=== PATIENT | female | born 1955 | race American Indian/Alaskan Native ===

== ENCOUNTER 2019-07-22 14:51 | Observation (INO) | payer MEDICARE ==
--- NOTE | 2019-07-22 15:52 | Emergency Department Report ---
HPI - General Chief Complaint: Altered Mental Status Time Seen by Provider: 07/22/19 15:32 - HPI HPI: Room 7 The patient is a 63-year-old female presenting with chief complaint of altered mental status. 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 Upon arrival to the Hospital patient was sent to the ED for reevaluation. When asked how she was feeling the patient replies she has some discomfort in her throat. The patient mumbles something else but also julia rologist that she was given some medication earlier today that made her sleepy. Location: [See above] Duration: [See above] Quality: [See above] Severity: [See above] Timing: [See above] Context: [See above] Modifying factors: [See above] Associated signs and symptoms: [see above] ED Past Medical Hx - Past Medical History Hx Hypertension: Yes Hx Psychiatric Treatment: Yes (schizoaffective disorder) - Family History Family history: no significant - Social History Substance Use Type: Cocaine (past history of cocaine use) - Medications Home Medications: Home Medications Medication Instructions Recorded Confirmed Last Taken Type Citalopram [celeXA] 20 mg PO BID 07/23/19 07/23/19 Unknown History Divalproex ER [DepaKOTE ER] 500 mg PO BID 07/23/19 07/23/19 Unknown History Folic Acid [Folvite] 1 mg PO QDAY 07/23/19 07/23/19 Unknown History Gabapentin [Neurontin] 300 mg PO Q8HR 07/23/19 07/23/19 Unknown History Hydroxyzine HCl [hydrOXYzine] 100 mg PO BID PRN 07/23/19 07/23/19 Unknown History Lisinopril [Zestril] 20 mg PO QDAY 07/23/19 07/23/19 Unknown History Multivit with Minerals No.55 1 each PO DAILY 07/23/19 07/23/19 Unknown History [Centrum Flavor Burst Adult] Thiamine [Vitamin B-1] 100 mg PO QDAY 07/23/19 07/23/19 Unknown History amLODIPine [Norvasc] 10 mg PO DAILY 07/23/19 07/23/19 Unknown History diazePAM TAB [Valium] 5 mg PO TID PRN 07/23/19 07/23/19 Unknown History hydroCHLOROthiazide [HCTZ] 25 mg PO QDAY 07/23/19 07/23/19 Unknown History risperiDONE [RisperDAL] 0.5 mg PO BID 07/23/19 07/23/19 Unknown History ED Review of Systems ROS: Stated complaint: ALTERED MENTAL STATUS Other details as noted in HPI Constitutional: no symptoms reported Eyes: denies: eye pain ENT: throat pain Respiratory: no symptoms reported Cardiovascular: denies: chest pain Endocrine: no symptoms reported Psychiatric: other (schizoaffective disorder) Physical Exam - Physical Exam Vital Signs: Vital Signs 07/22/19 15:20 Temperature 97.9 F Pulse Rate 91 H Respiratory 18 Rate Blood Pressure 121/64 [Right] O2 Sat by Pulse 99 Oximetry Physical Exam: GENERAL: The patient is well-developed well-nourished female lying on stretcher asleep not appearing to be in acute distress. Patient easily awakened HEENT: Normocephalic. Atraumatic. Extraocular motions are intact. Patient has moist mucous membranes. NECK: Supple. Trachea midline. No stridor CHEST/LUNGS: Clear to auscultation. There is no respiratory distress noted. HEART/CARDIOVASCULAR: Regular. There is no tachycardia. There is no gallop rub or murmur. ABDOMEN: Abdomen is soft, nontender. Patient has normal bowel sounds. There is no abdominal distention. SKIN: There is no rash. There is no edema. There is no diaphoresis. NEURO: The patient is awake but slightly slow to respond. The patient is cooperative. The patient has no focal neurologic deficits. The patient has normal speech. Cranial nerves II through XII grossly intact MUSCULOSKELETAL: There is no evidence of acute injury. ED Course Vital Signs 07/22/19 15:20 Temperature 97.9 F Pulse Rate 91 H Respiratory 18 Rate Blood Pressure 121/64 [Right] O2 Sat by Pulse 99 Oximetry ED Medical Decision Making - Lab Data Result diagrams: 07/23/19 19:50 07/23/19 19:50 - EKG Data -: EKG Interpreted by Ia EKG shows normal: sinus rhythm Rate: normal - EKG Data When compared to previous EKG there are: previous EKG unavailable Interpretation: other (no ischemic changes seen) - Differential Diagnosis sedation, Depakote toxicity, electrolyte imbalance, Critical care attestation.: If time is entered above; I have spent that time in minutes in the direct care of this critically ill patient, excluding procedure time. ED Disposition Clinical Impression: Hyperkalemia Acute renal failure Qualifiers: Acute renal failure type: unspecified Qualified Code(s): N17.9 - Acute kidney failure, unspecified Disposition: OP ADMIT IP TO THIS HOSP Is pt being admited?: Yes Does the pt Need Aspirin: No Condition: Fair
[2019-07-22 17:17] LABS: Hematocrit 30.1 % (30.3-42.9); Hemoglobin 9.8 gm/dl (10.1-14.3); Mean Corpuscular HGB Conc 33 % (30-34); Mean Corpuscular Volume 91 fl (79-97); Platelet Count 354 K/mm3 (140-440); Red Blood Count 3.31 M/mm3 (3.65-5.03); Red Cell Distribution Width 16.6 % (13.2-15.2)
[2019-07-22] MEDS ORDERED: SODIUM CHLORIDE 0.9% 1000 ML 1,000 ML IV ONE ×2 (17:17→18:22)
[2019-07-22 17:26] LABS: Alanine Aminotransferase 8 units/L (7-56); BUN/Creatinine Ratio 13; Blood Urea Nitrogen 12 mg/dL (7-17); Creatine Kinase MB < 1.0 ng/mL (0.0-4.0); Hemolysis Index 20
[2019-07-22 17:38] LABS: Free T4 (Free Thyroxine) 1.28 ng/dL (0.76-1.46)
[2019-07-22 19:02] LABS: Basophils % (Manual) 0 % (0.0-1.8); Eosinophils % (Manual) 0 % (0.0-4.3); Large Platelets 1+; Platelet Estimate Consistent w Auto; RBC Morphology Normal; Total Cells Counted 100
[2019-07-22 19:20] LABS: Bilirubin,Urine NEG (Negative); Blood,Urine NEG (Negative); Color,Urine Yellow (Yellow); Protein,Urine <15 mg/dL mg/dL (Negative); RBC,Urine < 1.0 /HPF (0.0-6.0); Urobilinogen,Urine < 2.0 mg/dL (<2.0)
[2019-07-22 19:26] LABS: WBC,Urine < 1.0 /HPF (0.0-6.0)
[2019-07-22 20:11] LABS: Amphetamine Screen,Urine PRESUMPTIVE NEGATIVE; Benzodiazepines Screen,Urine PRESUMPTIVE NEGATIVE; Cannabinoid Screen,Urine PRESUMPTIVE NEGATIVE; Cocaine Screen,Urine PRESUMPTIVE NEGATIVE; Methadone Screen,Urine PRESUMPTIVE NEGATIVE; Opiate Screen,Urine PRESUMPTIVE NEGATIVE
[2019-07-23 10:16] LABS: Calcium 9.6 mg/dL (8.4-10.2)
--- NOTE | 2019-07-23 10:17 | Consultation ---
History of Present Illness - Reason for Consult Consult date: 07/23/19 Reason for consult: Mental Health Evaluation Requesting physician: THEO CASTAÑEDA - Chief Complaint Chief complaint: "The patient mumbles" - History of Present Psychiatric Illness 63 y.o. AA female who presented to the ER for AMS. Today the patient was lethargic during the assessment. She could not answer any questions when asked. Several attempts was made to engage the patient, but was unsuccessful. Per the record, the patient is a [place]. No gestures of SI/HI's. Medications and Allergies Allergies Allergy/AdvReac Type Severity Reaction Status Date / Time No Known Allergies Allergy Verified 07/22/19 17:17 Home Medications Medication Instructions Recorded Confirmed Last Taken Type Citalopram [celeXA] 20 mg PO BID 07/23/19 07/23/19 Unknown History Divalproex ER [DepaKOTE ER] 500 mg PO BID 07/23/19 07/23/19 Unknown History Folic Acid [Folvite] 1 mg PO QDAY 07/23/19 07/23/19 Unknown History Gabapentin [Neurontin] 300 mg PO Q8HR 07/23/19 07/23/19 Unknown History Hydroxyzine HCl [hydrOXYzine] 100 mg PO BID PRN 07/23/19 07/23/19 Unknown History Lisinopril [Zestril] 20 mg PO QDAY 07/23/19 07/23/19 Unknown History Multivit with Minerals No.55 1 each PO DAILY 07/23/19 07/23/19 Unknown History [Centrum Flavor Burst Adult] Thiamine [Vitamin B-1] 100 mg PO QDAY 07/23/19 07/23/19 Unknown History amLODIPine [Norvasc] 10 mg PO DAILY 07/23/19 07/23/19 Unknown History diazePAM TAB [Valium] 5 mg PO TID PRN 07/23/19 07/23/19 Unknown History hydroCHLOROthiazide [HCTZ] 25 mg PO QDAY 07/23/19 07/23/19 Unknown History risperiDONE [RisperDAL] 0.5 mg PO BID 07/23/19 07/23/19 Unknown History Past psychiatric history - Past Medical History Past Medical History: other (Unable to obtain ) Past Surgical History: Other (Unable to obtain ) - past Psychiatric treatment and history psychiatric treatment history: Unable to obtain a psy hx and fam psy hx. - Social History Social history: other (Unable to obtain) Mental Status Exam - Vital signs Last Vital Signs Temp 99.1 F 07/23/19 08:04 Pulse 92 H 07/23/19 09:00 Resp 10 L 07/23/19 09:00 BP 102/55 07/23/19 09:00 Pulse Ox 100 07/23/19 09:00 - Exam Narrative exam: Unable to complete the MSE because of the patient's condition. Results Result Diagrams: 07/23/19 19:50 07/23/19 19:50 Abnormal lab results 07/22/19 07/22/19 07/22/19 Range/Units 15:03 16:44 16:44 RBC 3.31 L (3.65-5.03) M/mm3 Hgb 9.8 L (10.1-14.3) gm/dl Hct 30.1 L (30.3-42.9) % RDW 16.6 H (13.2-15.2) % Monocytes % (Manual) 13.0 H (0.0-7.3) % Monocytes # (Manual) 1.2 H (0.0-0.8) K/mm3 Sodium 133 L (137-145) mmol/L Potassium 5.3 H (3.6-5.0) mmol/L Chloride 97.0 L (98-107) mmol/L Carbon Dioxide 21 L (22-30) mmol/L Glucose 147 H (65-100) mg/dL POC Glucose 160 H (70-105) Albumin 3.0 L (3.9-5) g/dL 07/22/19 07/22/19 Range/Units 16:45 21:06 RBC (3.65-5.03) M/mm3 Hgb (10.1-14.3) gm/dl Hct (30.3-42.9) % RDW (13.2-15.2) % Monocytes % (Manual) (0.0-7.3) % Monocytes # (Manual) (0.0-0.8) K/mm3 Sodium (137-145) mmol/L Potassium 5.3 H (3.6-5.0) mmol/L Chloride (98-107) mmol/L Carbon Dioxide (22-30) mmol/L Glucose (65-100) mg/dL POC Glucose 165 H (70-105) Albumin (3.9-5) g/dL All other labs normal. Assessment and Plan Assessment and plan: Impression: Today the patient was lethargic during the assessment. Recommendation/Plan: The patient isn't on a 1013 at this time. Attempt to reassess the patient in [address] Bart Winslow.
--- NOTE | 2019-07-23 10:26 | Cat Scan Report ---
CT HEAD WITHOUT CONTRAST INDICATION : AMS. TECHNIQUE: Axial imaging performed from the skull apex through the skull base without the use of con trast. All CT scans at this location are performed using CT dose reduction for ALARA by means of aut omated exposure control. COMPARISON: None FINDINGS: Motion degrades the quality of the exam. Parenchyma: No acute intracranial hemorrhage or parenchymal abnormality. Ventricles: Ventricles are normal in size and appear symmetric. Frontal lobe and temporal lobe sulci are slightly large. Soft tissues: Soft tissues including the orbits appear normal. Bones: No acute osseous abnormality. Sinuses: Sinuses and mastoid air cells are clear except for calcific densities and right frontal and right ethmoid sinuses. IMPRESSION: No acute abnormality. Mild frontotemporal cortical atrophy. Chronic sinusitis versus yoli gn osteomas involving right frontal and right ethmoid sinuses. Signer Name: Eric Hoffmann MD Signed: 07/23/2019 10:22 AM Workstation Name: [id number]
[2019-07-23] MEDS ORDERED: SODIUM BICARB 8.4% 50 MEQ/50 ML SYRINGE IV ONE (12:44)
[2019-07-23] MEDS ORDERED: SODIUM CHLORIDE 0.9% 1000 ML 1,000 ML IV ONE (12:44)
[2019-07-23] MEDS ORDERED: DEXTROSE 50% IN WATER (25GM) 50 ML SYRINGE IV ONE ×2 (12:45→18:56)
[2019-07-23] MEDS ORDERED: INSULIN REGULAR, HUMAN 100 UNITS/1 ML IV ONE ×3 (12:45→23:15)
[2019-07-23] MEDS ORDERED: MEROPENEM/NS 1 GRAM/100 ML 1 GRAM/100 ML BAG IV ONE (12:47)
--- NOTE | 2019-07-23 12:57 | Emergency Department Report ---
Blank Doc - Documentation Documentation: 63-year-old female who was apparently evaluated last night. I note that she do es not have a disposition. She does not have a psychiatric assessment. Therefore I essentially reviewed her case and ordered additional laboratory study and examined the patient. The history that I have was that the patient came from a discussed the to [place] I was sent here for medical clearance. I do not have much in the way of specifics. She is said to have dementia. History is unobtainable from the patient. Review of systems unobtainable Past medical history dementia Social history as above indicated and largely unknown On examination the patient feels topically warm. Her rectal temp was obtained and was 99.6. Her general appearance is ill and somewhat volume depleted. HEENT his sclera and conjunctiva are clear the oral mucosa is dry. Neck not entirely supple with no meningismus mass or thyromegaly Cardiovascular regular rhythm and rate, systolic murmur noted Respiratory breath sounds clear and intact in the supine position GI the abdomen is nondistended soft and not apparently tender Musculoskeletal the patient has chronic knee deformity and does wince with range of motion. Laboratory data I found the patient to be hyperkalemic. There wasn't in accurately recorded t otal CK. The lab verbally told me it was 5031 but now I see 31 is documented. In any case a repeat BMP shows evidence of acute kidney injury and worsening hyperkalemia repeat CK is pending. Blood cultures and lactic acid have been ordered. Antibiotics and additional fluids have been ordered. Impression Acute kidney injury Hyperkalemia ? rhabdo Consider sepsis Altered mental status Plan the patient meets criteria for further stabilization. Hyperkalemia cocktail was ordered. Additional fluid and antibiotics as above. The patient is referred to hospitalist service for further care and stabilization. She is not medically clear for transfer to [place] obviously.
[2019-07-23] MEDS ORDERED: ASPIRIN 81 MG TAB CHEW PO ONE (12:59)
[2019-07-23] MEDS ORDERED: VANCOMYCIN PHARMACY TO DOSE IV SCH (13:00)
--- NOTE | 2019-07-23 13:23 | XRay Report ---
CHEST 1 VIEW INDICATION: hypertension COMPARISON: None FINDINGS: Support devices: None Heart: Normal Lungs/Pleura: Right hemidiaphragm is moderately elevated. Mild, chronic appearing interstitial diseas e. No pleural effusion or acute pulmonary disease. IMPRESSION: 1. No acute abnormalities. Signer Name: Ray Castaneda MD Signed: 07/23/2019 1:19 PM Workstation Name: [id number]
[2019-07-23] MEDS ORDERED: CALCIUM GLUCONATE 1,000 MG in SODIUM CHLORIDE 0.9% 100 ML IV ONE (13:45)
--- NOTE | 2019-07-23 13:49 | History and Physical Report ---
History of Present Illness Chief complaint: She is confused History of present illness: 63 YO Female with Schizoaffective Disorder, Cocaine Dependence presents to ED for evaluation. Pt is confused and lethargic and unable to provide history. Pt history taken from EMS and medical record. Pt was scheduled to be admitted to [facility] but became confused. Pt transported to [facility]. Pt seen and evaluated in ED and found to have Acute Kidney Injury, Encephalopathy, Acidosis. Pt symptoms worsened with IVF resuscitation. Pt admitted to [facility] unit. No further history obtainable. Pt is lethargic, but has positive gag reflex, and is able to protect her airway without difficulty. No prior admission for review. No medication listed for reconciliation at time of admission. Past History Past Medical History: other (Unable to obtain ) Past Surgical History: Other (Unable to obtain ) Social history: other (Unable to obtain) Family history: no significant family history, other (reviewed) Medications and Allergies Allergies Allergy/AdvReac Type Severity Reaction Status Date / Time No Known Allergies Allergy Verified 07/22/19 17:17 Home Medications Medication Instructions Recorded Confirmed Last Taken Type Citalopram [celeXA] 20 mg PO BID 07/23/19 07/23/19 Unknown History Divalproex ER [DepaKOTE ER] 500 mg PO BID 07/23/19 07/23/19 Unknown History Folic Acid [Folvite] 1 mg PO QDAY 07/23/19 07/23/19 Unknown History Gabapentin [Neurontin] 300 mg PO Q8HR 07/23/19 07/23/19 Unknown History Hydroxyzine HCl [hydrOXYzine] 100 mg PO BID PRN 07/23/19 07/23/19 Unknown History Lisinopril [Zestril] 20 mg PO QDAY 07/23/19 07/23/19 Unknown History Multivit with Minerals No.55 1 each PO DAILY 07/23/19 07/23/19 Unknown History [Centrum Flavor Burst Adult] Thiamine [Vitamin B-1] 100 mg PO QDAY 07/23/19 07/23/19 Unknown History amLODIPine [Norvasc] 10 mg PO DAILY 07/23/19 07/23/19 Unknown History diazePAM TAB [Valium] 5 mg PO TID PRN 07/23/19 07/23/19 Unknown History hydroCHLOROthiazide [HCTZ] 25 mg PO QDAY 07/23/19 07/23/19 Unknown History risperiDONE [RisperDAL] 0.5 mg PO BID 07/23/19 07/23/19 Unknown History Active Meds: Active Medications Calcium Gluconate 1,000 mg/ (Sodium Chloride) 110 mls @ 660 mls/hr IV ONCE ONE Stop: 07/23/19 13:54 Vancomycin HCl (Vancomycin/Ns 1 Gm/250 Ml) 1 gm in 250 mls @ 125 mls/hr IV Q24H MORENO Review of Systems ROS unobtainable: due to mental status Exam - Constitutional Vitals: Temp Pulse Resp BP Pulse Ox 99.7 F H 88 14 121/68 98 07/23/19 13:24 07/23/19 13:00 07/23/19 13:00 07/23/19 13:00 07/23/19 13:00 General appearance: Present: mild distress, obese - EENT Eyes: Present: PERRL ENT: hearing intact, clear oral mucosa - Neck Neck: Present: supple, normal ROM - Respiratory Respiratory effort: normal Respiratory: bilateral: CTA - Cardiovascular Heart Sounds: Present: S1 & S2. Absent: rub, click - Extremities Extremities: pulses symmetrical, No edema Peripheral Pulses: within normal limits - Abdominal General gastrointestinal: Present: soft, non-tender, non-distended, normal bowel sounds Female genitourinary: Present: normal - Integumentary Integumentary: Present: clear, warm, dry - Musculoskeletal Musculoskeletal: gait normal, strength equal bilaterally - Psychiatric Psychiatric: no appropriate mood/affect, no intact judgment & insight, no memory intact - Neurologic Neurologic: CNII-XII intact, moves all extremities, no gait normal Results - Labs CBC & Chem 7: 07/22/19 16:44 07/23/19 08:23 Labs: Abnormal lab results 07/22/19 07/22/19 07/22/19 Range/Units 15:03 16:44 16:44 RBC 3.31 L (3.65-5.03) M/mm3 Hgb 9.8 L (10.1-14.3) gm/dl Hct 30.1 L (30.3-42.9) % RDW 16.6 H (13.2-15.2) % Monocytes % (Manual) 13.0 H (0.0-7.3) % Monocytes # (Manual) 1.2 H (0.0-0.8) K/mm3 Sodium 133 L (137-145) mmol/L Potassium 5.3 H (3.6-5.0) mmol/L Chloride 97.0 L (98-107) mmol/L Carbon Dioxide 21 L (22-30) mmol/L BUN (7-17) mg/dL Creatinine (0.7-1.2) mg/dL Glucose 147 H (65-100) mg/dL POC Glucose 160 H (70-105) Albumin 3.0 L (3.9-5) g/dL 07/22/19 07/22/19 07/23/19 Range/Units 16:45 21:06 08:23 RBC (3.65-5.03) M/mm3 Hgb (10.1-14.3) gm/dl Hct (30.3-42.9) % RDW (13.2-15.2) % Monocytes % (Manual) (0.0-7.3) % Monocytes # (Manual) (0.0-0.8) K/mm3 Sodium 133 L (137-145) mmol/L Potassium 5.3 H 5.9 H (3.6-5.0) mmol/L Chloride 97.9 L (98-107) mmol/L Carbon Dioxide 21 L (22-30) mmol/L BUN 18 H (7-17) mg/dL Creatinine 1.8 H D (0.7-1.2) mg/dL Glucose 143 H (65-100) mg/dL POC Glucose 165 H (70-105) Albumin (3.9-5) g/dL 07/23/19 Range/Units 13:35 RBC (3.65-5.03) M/mm3 Hgb (10.1-14.3) gm/dl Hct (30.3-42.9) % RDW (13.2-15.2) % Monocytes % (Manual) (0.0-7.3) % Monocytes # (Manual) (0.0-0.8) K/mm3 Sodium (137-145) mmol/L Potassium (3.6-5.0) mmol/L Chloride (98-107) mmol/L Carbon Dioxide (22-30) mmol/L BUN (7-17) mg/dL Creatinine (0.7-1.2) mg/dL Glucose (65-100) mg/dL POC Glucose 148 H (70-105) Albumin (3.9-5) g/dL Assessment and Plan - Patient Problems (1) LADY (acute kidney injury) Current Visit: Yes Status: Acute Plan to address problem: IVF resuscitation, monitor uop q shift, avoid nephrotoxic agents, nephrology consulted, urinary electrolytes, renal ultrasound (2) Metabolic encephalopathy Current Visit: Yes Status: Acute Plan to address problem: CT head, neuro check, seizure precautions, aspiration precautions, thyroid p jose, neuro checks, fall precautions. (3) Acidosis Current Visit: Yes Status: Acute Plan to address problem: IVF resuscitation therapy, repeat bmp (4) Schizoaffective disorder Current Visit: Yes Status: Acute Qualifiers: Schizoaffective disorder type: bipolar Qualified Code(s): F25.0 - Schizoaffective disorder, bipolar type Plan to address problem: Mental health consulted, continue current therapy (5) DVT prophylaxis Current Visit: Yes Status: Acute Plan to address problem: SCD to BLE while in bed, prophylactic heparin
[2019-07-23] MEDS ORDERED: ONDANSETRON 4 MG/2 ML INJ IV PRN (13:51)
[2019-07-23] MEDS ORDERED: ACETAMINOPHEN 325 MG TAB PO PRN (13:51)
[2019-07-23] MEDS ORDERED: VANCOMYCIN/NS 1 GM/250 ML 1 GM/250 ML BAG IV SCH (14:00)
[2019-07-23 14:41] LABS: Creatine Kinase MB 1.5 ng/mL (0.0-4.0)
[2019-07-23 17:10] LABS: Albumin 2.4 g/dL (3.9-5); Calcium 9.6 mg/dL (8.4-10.2)
[2019-07-23] MEDS ORDERED: D5W/0.9% NACL 1,000 ML IV SCH (18:00)
--- NOTE | 2019-07-23 18:01 | Consultation ---
History of Present Illness - Reason for Consult Consult date: 07/23/19 acute renal failure, hyperkalemia - History of Present Illness The patient is a 63 YO female with history signficant for Schizoaffective Disorder and Cocaine Dependence who presented to [facility] ED for evaluation of AMS. Pt is confused to provide a good history and there was no family members at the bedside. Information was taken from previous documentation. Pt was scheduled to be admitted to [facility] but found confused. Pt was transported to [facility] ED for further evaluation. Pt was found to have hypotension, Acute Kidney Injury and Encephalopathy. Creatinine is 1.3 and K 5.6. Nephrology was consulted for further evaluation. Past History Past Medical History: other (Unable to obtain ) Past Surgical History: Other (Unable to obtain ) Social history: other (Unable to obtain) Family history: no significant family history, other (reviewed) Medications and Allergies Allergies Allergy/AdvReac Type Severity Reaction Status Date / Time No Known Allergies Allergy Verified 07/22/19 17:17 Home Medications Medication Instructions Recorded Confirmed Last Taken Type Citalopram [celeXA] 20 mg PO BID 07/23/19 07/23/19 Unknown History Divalproex ER [DepaKOTE ER] 500 mg PO BID 07/23/19 07/23/19 Unknown History Folic Acid [Folvite] 1 mg PO QDAY 07/23/19 07/23/19 Unknown History Gabapentin [Neurontin] 300 mg PO Q8HR 07/23/19 07/23/19 Unknown History Hydroxyzine HCl [hydrOXYzine] 100 mg PO BID PRN 07/23/19 07/23/19 Unknown History Lisinopril [Zestril] 20 mg PO QDAY 07/23/19 07/23/19 Unknown History Multivit with Minerals No.55 1 each PO DAILY 07/23/19 07/23/19 Unknown History [Centrum Flavor Burst Adult] Thiamine [Vitamin B-1] 100 mg PO QDAY 07/23/19 07/23/19 Unknown History amLODIPine [Norvasc] 10 mg PO DAILY 07/23/19 07/23/19 Unknown History diazePAM TAB [Valium] 5 mg PO TID PRN 07/23/19 07/23/19 Unknown History hydroCHLOROthiazide [HCTZ] 25 mg PO QDAY 07/23/19 07/23/19 Unknown History risperiDONE [RisperDAL] 0.5 mg PO BID 07/23/19 07/23/19 Unknown History Active Meds: Active Medications Acetaminophen (Tylenol) 650 mg PO Q4H PRN PRN Reason: Pain MILD(1-3)/Fever >100.5/DEJESUS Dextrose (D50w (25gm) Syringe) 50 ml IV ONCE ONE Stop: 07/23/19 17:57 Heparin Sodium (Porcine) (Heparin) 5,000 unit SUB-Q Q12HR MORENO Vancomycin HCl (Vancomycin/Ns 1 Gm/250 Ml) 1 gm in 250 mls @ 125 mls/hr IV Q24H MORENO Last Admin: 07/23/19 15:08 Dose: 125 mls/hr Documented by: Dextrose/Sodium Chloride (D5ns) 1,000 mls @ 50 mls/hr IV DIRECT MORENO Insulin Human Regular (Humulin R) 8 units IV ONCE ONE Stop: 07/23/19 17:57 Ondansetron HCl (Zofran) 4 mg IV Q8H PRN PRN Reason: Nausea And Vomiting Pneumococcal Polyvalent Vaccine (Pneumovax 23) 0.5 ml IM .ONCE ONE Stop: 07/24/19 12:01 Sodium Chloride (Sodium Chloride Flush Syringe 10 Ml) 10 ml IV BID MORENO Sodium Chloride (Sodium Chloride Flush Syringe 10 Ml) 10 ml IV PRN PRN PRN Reason: LINE FLUSH Sodium Polystyrene Sulfonate (Kionex) 30 gm MD ONCE ONE Stop: 07/23/19 17:56 Review of Systems ROS unobtainable: due to mental status Exam - Vital Signs Vital signs: Vital Signs Pulse Ox 92 07/22/19 15:14 - General Appearance General appearance: well-developed, well-nourished, appears stated age, other (not in distress) EENT: ATNC, PERRL, mucous membranes dry, hearing intact Neck: Present: neck supple, trachea midline Respiratory: Clear to Ascultation Heart: regular, S1S2, no murmurs Gastrointestinal: Present: normoactive bowel sounds, obese. Absent: tenderness, distended Integumentary: no rash, warm and dry Neurologic: confused, other (able to move extremities) Musculoskeletal: Present: other (no edema) Results - Lab Results 07/22/19 16:44 07/23/19 16:47 Most recent lab results Calcium 9.6 mg/dL (8.4-10.2) 07/23/19 16:47 Magnesium 2.30 mg/dL (1.7-2.3) 07/23/19 13:19 - Image Kidney/bladder ultrasound: pending Assessment and Plan 1. Acute kidney injury: Vasomotor LADY in the setting of hypotension. UA is bland. Renal US pending. Renal function is improving. Start on IV fluids. Monitor renal function. Meds dosage based on GFR. Avoid nephrotoxic agents. 2. FEN: Hyperkalemia, kayexalate and Insulin-Dextrose ordered. Metabolic acidosis, continue IV fluids. Monitor lytes. 3. Hypotension: S/p IV fluid bolus. Maintenance IV fluids. 4. Encephalopathy. 5. SIRS: POA. 6. Schizoaffective disorder. 7. Normochromic anemia: POA.
--- NOTE | 2019-07-23 18:46 | Ultrasound Report ---
ULTRASOUND RENAL INDICATION: LADY. COMPARISON: No relevant prior imaging study available. FINDINGS: RIGHT KIDNEY: Size: 10.3 cm. Echogenicity: Normal. Cortical thickness: Normal. Hydronephrosis: None. Cyst or mass: None. Stones: None. LEFT KIDNEY: Size: 9.8 cm. Echogenicity: Normal. Cortical thickness: Normal. Hydronephrosis: None. Cyst or mass: None. Stones: None. Urinary Bladder: No significant abnormality. Free Fluid: None. Additional Findings: None. IMPRESSION 1. No acute sonographic abnormality of the kidneys. Signer Name: Latrell Carl MD Signed: 07/23/2019 6:42 PM Workstation Name: [id number]
[2019-07-23] MEDS ORDERED: SODIUM POLYSTYRENE 15 GM/60 ML ORAL LIQD PR ONE (18:55)
[2019-07-23 20:00] LABS: Hematocrit 28.9 % (30.3-42.9); Hemoglobin 9.7 gm/dl (10.1-14.3); Mean Corpuscular HGB Conc 34 % (30-34); Mean Corpuscular Volume 91 fl (79-97); Platelet Count 393 K/mm3 (140-440); Red Blood Count 3.18 M/mm3 (3.65-5.03); Red Cell Distribution Width 16.4 % (13.2-15.2)
[2019-07-23 20:10] LABS: INR 0.99 (0.87-1.13)
[2019-07-23 20:11] LABS: Calcium 9.6 mg/dL (8.4-10.2); Partial Thromboplastin Time 25.8 Sec. (24.2-36.6)
[2019-07-23 20:58] LABS: Basophils % (Manual) 0 % (0.0-1.8); Eosinophils % (Manual) 0 % (0.0-4.3); RBC Morphology Normal; Total Cells Counted 100
[2019-07-23] MEDS: HEPARIN 5,000 UNIT/1 ML VIAL SUB-Q SCH (22:30)
[2019-07-24 05:33] LABS: Creatinine,Urine 160.9 mg/dL (0.1-20.0)
--- NOTE | 2019-07-24 08:19 | Progress Note ---
Subjective - Reason for Consult Consult date: 07/24/19 Reason for consult: Psychiatric Follow-up Evaluation - Chief Complaint Chief complaint: "The patient mumbles" Patient is a 63 y.o. AA female who presented to the ER for AMS. Today the patient is somewhat confused during the assessment. Alert and oriented x 1. Patient is not oriented to place, date, and situation. Today patient is more verbal. Answers to questions are not logical. Provider spoke with social work. Social work spoke with patient's daughter. There is a psychiatric history and substance abuse history. Patient has a PPHx of schizoaffective disorder, bipolar type and substance abuse ( cocaine, alcohol, and marijuana). No gestures of SI/HI's. Current Psychiatric Medications: Unable to Assess. Past Psychiatric History: Unable to Assess. Past Medication Trials: Unable to Assess. History of Alcohol/Drug Abuse: Unable to Assess. History of Trauma/Abuse: Unable to Assess. Social History: Unable to Assess. Family History of Psychiatric Illness/Substance Abuse: Unable to Assess. Mental Status Exam - Vital signs Last Vital Signs Temp 98.5 F 07/24/19 07:32 Pulse 92 H 07/24/19 07:32 Resp 18 07/24/19 07:44 BP 155/69 07/24/19 07:32 Pulse Ox 100 07/24/19 07:58 - Exam Narrative exam: Mental Status Exam: Appearance: anxious, agitated Behavior: regular eye contact Speech: regular rate and tone Mood: " I don't know why I'm here" Affect: labile Thought Process: somewhat confused Thought Content: denies SI/HI's and AVH's, delusions Motor Activity: lying in bed Cognition: A/O x 1 Insight: poor Judgment: poor Assessment and Plan Impression: PPHx schizoaffective disorder. Cocaine/Alcohol Use Disorder, severe. Today the patient is anxious and agitated during the assessment. Some confusion is noted. Patient is alert and oriented x 1. Recommendation/Plan: 1. Will reassess in 24 hours. 2. Will attempt to gain collateral. 3. Will start Risperdal 0.5mg po BID mood/psychosis. Attempted to discuss metabolic side effects. 4. Recommend patient to be on CIWA protocol for possible alcohol withdrawals. Will staff with Dr Bart Winslow.
[2019-07-24] MEDS: HEPARIN 5,000 UNIT/1 ML VIAL SUB-Q SCH (09:31)
--- NOTE | 2019-07-24 09:33 | Progress Note ---
Assessment and Plan 1. Acute kidney injury: Vasomotor LADY in the setting of hypotension. UA is bland. Renal US negative for hydronephrosis. Renal function is better. Continue IV fluids. Monitor renal function. Avoid nephrotoxic agents. 2. FEN: Hyperkalemia, kayexalate and Lasix ordered. Metabolic acidosis, continue IV fluids. Monitor lytes. 3. Hypotension: BP is better. Maintenance IV fluids. 4. Encephalopathy. 5. SIRS: POA. 6. Schizoaffective disorder. 7. Normochromic anemia: POA. Examination: General appearance: well-developed, well-nourished, appears stated age, not in distress HEENT: ATNC, PERRL, mucous membranes moist, hearing intact Neck: neck supple, trachea midline Respiratory: Clear to Ascultation Heart: regular, S1S2, no murmurs Gastrointestinal: normoactive bowel sounds, obese, not tender Integumentary: no rash, warm and dry Neurologic: confused, able to move extremities Ext: no edema Subjective Date of service: 07/24/19 Interval history: Patient was seen and examined at the bedside. Objective - Vital Signs Vital signs: Vital Signs - 12hr 07/24/19 07/24/19 07/24/19 00:03 01:04 03:00 Temperature 98.5 F Pulse Rate 90 Respiratory 20 20 Rate Blood Pressure Blood Pressure [Right] O2 Sat by Pulse 97 93 Oximetry 07/24/19 07/24/19 07/24/19 03:03 07:32 07:44 Temperature 98.5 F Pulse Rate 92 H Respiratory 20 18 Rate Blood Pressure 155/69 Blood Pressure 135/53 [Right] O2 Sat by Pulse 96 Oximetry 07/24/19 07:58 Temperature Pulse Rate Respiratory Rate Blood Pressure Blood Pressure [Right] O2 Sat by Pulse 100 Oximetry - Lab 07/23/19 19:50 07/24/19 09:20 Most recent lab results Calcium 9.6 mg/dL (8.4-10.2) 07/23/19 19:50 Magnesium 2.30 mg/dL (1.7-2.3) 07/23/19 13:19 Urine Creatinine 160.9 mg/dL (0.1-20.0) H 07/24/19 04:45 Urine Sodium 63 mmol/L 07/24/19 04:45 Medications & Allergies - Medications Allergies/Adverse Reactions: Allergies No Known Allergies Allergy (Verified 07/22/19 17:17) Home Medications: Home Medications Medication Instructions Recorded Confirmed Last Taken Type Citalopram [Celexa] 20 mg PO BID 07/23/19 07/25/19 Unknown History Gabapentin 300 mg PO QHS PRN 07/23/19 07/25/19 Unknown History Hydroxyzine HCl [hydrOXYzine] 50 mg PO BID PRN 07/23/19 07/25/19 Unknown History Multivit with Minerals No.55 1 each PO DAILY 07/23/19 07/25/19 Unknown History [Centrum Flavor Burst Adult] diazePAM TAB [Valium] 5 mg PO TID PRN 07/23/19 07/25/19 Unknown History risperiDONE [RisperDAL] 0.5 mg PO BID 07/23/19 07/25/19 Unknown History Divalproex ER [Depakote ER] 500 mg PO BID #60 07/25/19 Unknown Rx Folic Acid [Folvite] 1 mg PO QDAY tablet 07/25/19 Unknown Rx Folic Acid [Folvite] 1 mg PO QDAY #30 07/25/19 Unknown Rx Lisinopril [Zestril TAB] 20 mg PO QDAY #30 07/25/19 Unknown Rx Thiamine [Vitamin B-1] 100 mg PO QDAY #30 07/25/19 Unknown Rx amLODIPine 10 mg PO DAILY #30 07/25/19 Unknown Rx hydroCHLOROthiazide [HCTZ] 25 mg PO QDAY #30 07/25/19 Unknown Rx Active Medications: Generic Name Dose Route Start Last Admin Trade Name Orvilleq PRN Reason Stop Dose Admin Acetaminophen 650 mg 07/23/19 13:51 07/24/19 07:28 Tylenol PO 650 mg Q4H PRN Administration Pain MILD(1-3)/Fever >100.5/DEJESUS Heparin Sodium (Porcine) 5,000 unit 07/23/19 22:00 07/24/19 09:31 Heparin SUB-Q 5,000 unit Q12HR MORENO Administration Vancomycin HCl 1 gm in 250 mls @ 125 mls/hr 07/23/19 14:00 07/23/19 15:08 Vancomycin/Ns 1 Gm/250 Ml IV 125 mls/hr Q24H MORENO Administration Dextrose/Sodium Chloride 1,000 mls @ 50 mls/hr 07/23/19 18:00 07/23/19 23:43 D5ns IV 50 mls/hr DIRECT MORENO Administration Ondansetron HCl 4 mg 07/23/19 13:51 Zofran IV Q8H PRN Nausea And Vomiting Pneumococcal Polyvalent Vaccine 0.5 ml 07/24/19 12:00 Pneumovax 23 IM 07/24/19 12:01 .ONCE ONE Sodium Chloride 10 ml 07/23/19 22:00 07/24/19 09:31 Sodium Chloride Flush Syringe 10 Ml IV 10 ml BID MORENO Administration Sodium Chloride 10 ml 07/23/19 13:51 Sodium Chloride Flush Syringe 10 Ml IV PRN PRN LINE FLUSH
[2019-07-24 10:04] LABS: BUN/Creatinine Ratio 23; Blood Urea Nitrogen 16 mg/dL (7-17); Calcium 9.6 mg/dL (8.4-10.2); Hemolysis Index 66
[2019-07-24] MEDS ORDERED: SODIUM POLYSTYRENE 15 GM/60 ML ORAL LIQD PR ONE (10:34)
[2019-07-24] MEDS ORDERED: FUROSEMIDE 40 MG/4 ML INJ IV ONE ×2 (10:34→14:00)
[2019-07-24] MEDS ORDERED: PNEUMOCOCCAL 23 Valent 0.5 ML VIAL IM ONE (12:00)
[2019-07-24] MEDS ORDERED: risperiDONE 1 MG TAB PO SCH (12:00)
[2019-07-24] MEDS ORDERED: FLU VACC QUAD 2019-20 (3 YR UP)/PF 60 MCG/0.5 ML SYRINGE IM ONE (12:00)
--- NOTE | 2019-07-24 12:06 | Discharge Summary ---
Providers - Providers Date of Admission: 07/23/19 13:51 Attending physician: EDMAR BELLA MD 07/22/19 19:38 Consult to Mental Health [CONS] Stat Reason For Exam: schizoaffective disorder Place consult to:: y Notified:: y 07/23/19 10:11 Consult to Case Management [CONS] Stat Services Needed at Discharge: Other Notified:: contacted Case Mgmt 07/23/19 16:14 Consult to Physician [CONS] Routine Comment: Consulting Provider: JAREK PARRA Physician Instructions: Reason For Exam: LADY 07/24/19 08:52 Physical Therapy Evaluation and Treat [CONS] Routine Comment: Reason For Exam: Weakness Primary care physician: DOCUMENTATION SPEC Hospitalization Reason for admission: unresponsive Condition: Fair Hospital course: 63 YO Female with Schizoaffective Disorder, Cocaine Dependence presents to ED for evaluation. Pt is confused and lethargic and unable to provide history. Pt history taken from EMS and medical record. Pt was scheduled to be admitted to [facility] but became confused. Pt transported to [facility]. Pt seen and evaluated in ED and found to have Acute Kidney Injury, Encephalopathy, Acidosis. Pt symptoms worsened with IVF resuscitation. Pt admitted to [facility] unit. No further history obtainable. Pt is lethargic, but has positive gag reflex, and is able to protect her airway without difficulty. No prior admission for review. No medication listed for reconciliation at time of admission. Patient was treated with IV fluids, lasix and kayxalate with improvement of symptoms. Imaging studies were unremarkable. she is stable for discharge. She will follow with mental health and all other needed specalities outpatient. family informs us that she has had a long miramontes with substance abuse, extensive counselling greater than 20 mins provided. patient verbalized understands, and states she will quit everything except tobacco COUNSELLING ON TOBACCO CESSATION, SUBSTANCE ABUSE AND ALCOHOL CESSATION PER PATIENT SHE MAKES HER OWN VADOKA BUT HAS STOPPED SINCE IN SHE AT THIS TIME APPEARS AT HER BASELINE AND CAN CONTINUE WITH PLACEMENT IN [facility] OR PERSONAL LONG TERM. SHE IS NOT 1013. Follow with [facility] outpatient for repeat labs No evidence of infection or sepesis imaging studies reviewed with no acute changes noted - Patient Problems (1) LADY (acute kidney injury) secondary to vasomotor nephropathy Resolved (2) Metabolic encephalopathy likely secondary to susbtance abuse (3) Acidosis (4) Schizoaffective disorder (5) Alcohol and cocain use disorder Disposition: DC-01 TO HOME OR SELFCARE Time spent for discharge: 35 mins Core Measure Documentation - Palliative Care Palliative Care/ Comfort Measures: Not Applicable - Core Measures Any of the following diagnoses?: none Exam - Constitutional Vitals: Temp Pulse Resp BP Pulse Ox 98.5 F 92 H 18 155/69 100 07/24/19 07:32 07/24/19 07:32 07/24/19 07:44 07/24/19 07:32 07/24/19 07:58 General appearance: Present: no acute distress, well-nourished - EENT Eyes: Present: PERRL, EOM intact ENT: hearing intact, clear oral mucosa, hearing decreased - Neck Neck: Present: supple, normal ROM - Respiratory Respiratory effort: normal Respiratory: bilateral: CTA - Cardiovascular Rhythm: regular Heart Sounds: Present: S1 & S2. Absent: systolic murmur, diastolic murmur - Extremities Extremities: no ischemia, pulses intact, pulses symmetrical, No edema, normal temperature, normal color, Full ROM Peripheral Pulses: within normal limits - Abdominal General gastrointestinal: Present: soft, non-tender, non-distended, normal bowel sounds - Integumentary Integumentary: Present: clear, warm, dry - Musculoskeletal Musculoskeletal: strength equal bilaterally - Psychiatric Psychiatric: no intact judgment & insight, memory intact, agitated - Neurologic Neurologic: CNII-XII intact, moves all extremities - Allied Health Allied health notes reviewed: nursing Plan Activity: advance as tolerated, fall precautions Diet: low fat Special Instructions: record daily BP diary Follow up with: KAEL BAUTISTA MD [Primary Care Provider] - 3-5 Days JAREK PARRA MD [Staff Physician] - 7 Days VENITA DIGGS MD [Staff Physician] - 7 Days
[2019-07-24 14:17] VITALS: BP 126/61
[2019-07-24] MEDS: SODIUM POLYSTYRENE 15 GM/60 ML ORAL LIQD PO SCH ×2 (14:33→16:44)
== END 2019-07-24 16:53 | disposition home or self-care (01) ==
LOC: ED 14:51 → INTOOBSV 07-23 13:51 → 2B-ACE 07-23 13:51
PROVIDERS: ADMIT Internal Medicine; ATTEND Internal Medicine
DX: N17.9 Acute kidney failure, unspecified (principal); G93.41 Metabolic encephalopathy; E87.2 Acidosis; F25.9 Schizoaffective disorder, unspecified; E87.5 Hyperkalemia; R41.82 Altered mental status, unspecified; I10 Essential (primary) hypertension; I95.9 Hypotension, unspecified; R65.10 Systemic inflammatory response syndrome (SIRS) of non-infectious origin without acute organ dysfunction; D64.9 Anemia, unspecified; F10.10 Alcohol abuse, uncomplicated; F14.90 Cocaine use, unspecified, uncomplicated; Z23 Encounter for immunization
CPT/HCPCS: 36415; 70450; 71045; 76770; 80048; 80053; 80164; 80307; 81001; 82140; 82150; 82550; 82553; 82570; 82962; 83690; 83735; 83880; 84132; 84300; 84439; 84443; 84484; 85007; 85025; 85610; 85730; 87040; 87086; 87116; 90471; 90686; 90732; 93005; 93010; 94760; 96361; 96365; 96366; 96367; 96372; 96375; 96376; 97161; 97530; 99284; G0378; J0610; J1644; J1940; J2185; J3370; J7030; J7042; 80320; G0480; J1815

== ENCOUNTER 2019-07-25 13:21 | Emergency (ER) | payer MEDICARE ==
[2019-07-25] MEDS ORDERED: HYDROmorphone 1 MG/1 ML INJ IM ONE (15:03)
--- NOTE | 2019-07-25 15:05 | Emergency Department Report ---
ED General Adult HPI - General Chief complaint: Extremity Injury, Lower Stated complaint: LEG/BACK PAIN Time Seen by Provider: 07/25/19 14:09 Source: patient, family, EMS ( EMS documentation not available at time of chart dictation ), RN notes reviewed, old records reviewed Mode of arrival: Stretcher Limitations: Physical Limitation - History of Present Illness Initial comments: This is a 63-year-old female. Her past medical history includes schizoaffective disorder, cocaine dependence, renal insufficiency, reported chronic pain She was recently discharged from this hospital as she "appears at her baseline and can continue with placement in anchor or personal senior care." Apparently, the patient has chronic pain, and has difficulty caring for herself. Reportedly, she was discharged with an IV in her left upper extremity. She presents to the ER with a complaint of request for appropriate placement. She also endorses chronic lower back pain, no trauma, but she denies headache, neck pain, chest pain, abdominal pain, shortness of breath. She makes no complaint of extremity weakness or numbness per se, and she made no complaint of bladder or bowel retention or incontinence, rather, she has chronic pain and chronic poor and auditory status, and therefore has difficulty making to the bathroom on time. During the history and physical, I am chaperoned by nurse Mikala Dan -: Gradual Location: back Radiation: non-radiation Severity scale (0 -10): 10 Quality: stabbing Consistency: constant Improves with: medication, rest Worsens with: movement - Related Data Home Medications Medication Instructions Recorded Confirmed Last Taken Citalopram [Celexa] 20 mg PO BID 07/23/19 07/25/19 Unknown Gabapentin 300 mg PO QHS PRN 07/23/19 07/25/19 Unknown Hydroxyzine HCl [hydrOXYzine] 50 mg PO BID PRN 07/23/19 07/25/19 Unknown Multivit with Minerals No.55 1 each PO DAILY 07/23/19 07/25/19 Unknown [Centrum Flavor Burst Adult] diazePAM TAB [Valium] 5 mg PO TID PRN 07/23/19 07/25/19 Unknown risperiDONE [RisperDAL] 0.5 mg PO BID 07/23/19 07/25/19 Unknown Previous Rx's Medication Instructions Recorded Last Taken Type Divalproex ER [Depakote ER] 500 mg PO BID #60 07/25/19 Unknown Rx Folic Acid [Folvite] 1 mg PO QDAY tablet 07/25/19 Unknown Rx Folic Acid [Folvite] 1 mg PO QDAY #30 07/25/19 Unknown Rx Lisinopril [Zestril TAB] 20 mg PO QDAY #30 07/25/19 Unknown Rx Thiamine [Vitamin B-1] 100 mg PO QDAY #30 07/25/19 Unknown Rx amLODIPine 10 mg PO DAILY #30 07/25/19 Unknown Rx hydroCHLOROthiazide [HCTZ] 25 mg PO QDAY #30 07/25/19 Unknown Rx Allergies Allergy/AdvReac Type Severity Reaction Status Date / Time No Known Allergies Allergy Verified 07/22/19 17:17 ED Review of Systems ROS: Stated complaint: LEG/BACK PAIN Other details as noted in HPI Constitutional: denies: fever ENT: denies: congestion Respiratory: denies: wheezing Cardiovascular: denies: syncope Gastrointestinal: denies: vomiting Genitourinary: denies: dysuria Musculoskeletal: arthralgia, myalgia Skin: as per HPI. denies: lesions Neurological: weakness (global not focal) Psychiatric: denies: homicidal thoughts, suicidal thoughts ED Past Medical Hx - Past Medical History Previous Medical History?: Yes Hx Hypertension: Yes Hx Diabetes: Yes Hx Psychiatric Treatment: Yes (schizoaffective disorder, bipolar) - Surgical History Past Surgical History?: No - Social History Smoking Status: Never Smoker Substance Use Type: Alcohol - Medications Home Medications: Home Medications Medication Instructions Recorded Confirmed Last Taken Type Citalopram [Celexa] 20 mg PO BID 07/23/19 07/25/19 Unknown History Gabapentin 300 mg PO QHS PRN 07/23/19 07/25/19 Unknown History Hydroxyzine HCl [hydrOXYzine] 50 mg PO BID PRN 07/23/19 07/25/19 Unknown History Multivit with Minerals No.55 1 each PO DAILY 07/23/19 07/25/19 Unknown History [Centrum Flavor Burst Adult] diazePAM TAB [Valium] 5 mg PO TID PRN 07/23/19 07/25/19 Unknown History risperiDONE [RisperDAL] 0.5 mg PO BID 07/23/19 07/25/19 Unknown History Divalproex ER [Depakote ER] 500 mg PO BID #60 07/25/19 Unknown Rx Folic Acid [Folvite] 1 mg PO QDAY tablet 07/25/19 Unknown Rx Folic Acid [Folvite] 1 mg PO QDAY #30 07/25/19 Unknown Rx Lisinopril [Zestril TAB] 20 mg PO QDAY #30 07/25/19 Unknown Rx Thiamine [Vitamin B-1] 100 mg PO QDAY #30 07/25/19 Unknown Rx amLODIPine 10 mg PO DAILY #30 07/25/19 Unknown Rx hydroCHLOROthiazide [HCTZ] 25 mg PO QDAY #30 07/25/19 Unknown Rx ED Physical Exam - General Limitations: Physical Limitation General appearance: alert, anxious, in distress, obese - Head Head exam: Present: atraumatic, normocephalic - Eye Eye exam: Present: normal appearance, EOMI. Absent: nystagmus - ENT ENT exam: Present: normal exam, normal orophraynx, mucous membranes moist, normal external ear exam - Neck Neck exam: Present: normal inspection, full ROM. Absent: tenderness, meni ngismus - Respiratory Respiratory exam: Present: normal lung sounds bilaterally. Absent: respiratory distress - Cardiovascular Cardiovascular Exam: Present: regular rate, normal rhythm, normal heart sounds. Absent: bradycardia, tachycardia, irregular rhythm, systolic murmur, diastolic murmur, rubs, gallop - GI/Abdominal GI/Abdominal exam: Present: soft. Absent: distended, tenderness, guarding, rebound, rigid, pulsatile mass - Rectal Rectal exam: Present: normal inspection, other (chaperoned by nurse Mikala Dan) - External exam: Present: normal external exam, other (chaperoned by nurse Mikala Dan) - Extremities Exam Extremities exam: Present: normal inspection, full ROM, pedal edema (1+ edema bilateral lower extremities), other (2+ pulses noted in the bilateral upper, lower extremities. There is no long bone tenderness. Musculoskeletal compart ments are soft. The pelvis is stable.). Absent: calf tenderness - Back Exam Back exam: Present: normal inspection, tenderness, paraspinal tenderness, vertebral tenderness, other (there is diffuse distal thoracic and lumbar spine tenderness. There is diffuse reproducible paralumbar tenderness.). Absent: CVA tenderness (R), CVA tenderness (L) - Neurological Exam Neurological exam: Present: alert, other (there is no facial droop. The tongue is midline. Extraocular movements are intact bilaterally. There is 5 out of 5 strength bilateral upper, lower extremities. Sensation is intact to light touch, pinch in the bilateral upper, lower extremities. Downgoing plantar reflexes bilaterally. 2+ quadriceps reflex noted bilaterally.) - Psychiatric Psychiatric exam: Present: anxious. Absent: homicidal ideation, suicidal ideation - Skin Skin exam: Present: warm, dry, intact, normal color. Absent: rash ED Course Vital Signs 07/25/19 07/25/19 07/25/19 14:10 16:24 16:54 Temperature 98.5 F Pulse Rate 74 Respiratory 15 19 13 Rate Blood Pressure Blood Pressure 163/88 [Left] O2 Sat by Pulse 99 Oximetry 07/25/19 07/25/19 07/25/19 17:46 18:00 18:22 Temperature Pulse Rate 77 67 82 Respiratory 16 20 11 L Rate Blood Pressure Blood Pressure 131/67 138/70 158/78 [Left] O2 Sat by Pulse 99 99 97 Oximetry 07/25/19 19:02 Temperature Pulse Rate 80 Respiratory Rate Blood Pressure 156/81 Blood Pressure [Left] O2 Sat by Pulse Oximetry - Reevaluation(s) Reevaluation #1: 07/25/19 16:12 Differential diagnosis, including but not limited to: Chronic back pain, fracture, dislocation, AAA, chronic debility, medical clearance, case management patient Assessment and plan: 63-year-old female reportedly discharged yesterday or recently to a personal senior care, however, needs assistance with activities of daily living. She is reportedly discharged with an IV in her left upper extremity from her previous admission. Physical exam is unremarkable with the exception of reproducible paraspinal tenderness and thoracic and lumbar spine tenderness. She is moving 4 extremities spontaneously, and has appropriate sensation to light touch and pinch. She has downgoing plantar reflexes. This is unlikely to be a cord syndrome, this is more likely an acute exacerbation of presumed chronic pain. Daughter is at the bedside, and she is endorses are to t clarence the patient home. Screening laboratory studies and CT scans have been ordered. We will reassess after data points have been resulted. Case management and risk management have been involved, information security risk analyst Aurora Perez and colleague Elaine at the bedside She will be given hydromorphone for breakthrough pain control. Reevaluation #2: 07/25/19 18:12 Laboratory studies reviewed and are appreciated. CT scan abdomen and pelvis shows no acute emergent traumatic condition or AAA. CT scan lumbar spine pending. CT scan thoracic spine showing incidental reported nonemergent findings. No external indication of trauma, there is no history of trauma. Patient can follow-up as an outpatient with a primary care doctor or outpatient specialist for nonemergent incidental findings. Reevaluation #3: 07/25/19 20:15 Patient reevaluated multiple times while here in the department. No acute traumatic lesions noted. Screening laboratory studies unremarkable. She has requested a refill on her prescriptions. Patient and family informed that we would be happy to refill prescriptions for [id number] nonsedating medications. Extents we discussed laboratory studies, and incidental CT scan findings with patient and family. Case management already involved. Patient can follow-up with an outpatient primary care doctor for incidental nonemergent findings. Reevaluation #4: 07/25/19 20:16 sister states she feels comfortable to take patient home d/w Joslyn Perez of risk management/case management, who tells me that family is aware of patients need for help at home and that daughter is looking into it, and that our case management team is going make home health arrangements ED Medical Decision Making - Lab Data Result diagrams: 07/25/19 16:11 07/25/19 16:11 Vital Signs 07/25/19 14:10 Temperature 98.5 F Pulse Rate 74 Respiratory 15 Rate Blood Pressure 163/88 [Left] O2 Sat by Pulse 99 Oximetry - EKG Data -: EKG Interpreted by Me EKG shows normal: sinus rhythm Rate: normal - EKG Data 07/25/19 16:14 The EKG shows a sinus rhythm, 72 bpm, normal axis, QTC is 431 ms, there is poor R-wave progression, there is no endorsement of chest pain, the EKG is not consistent with ST elevation myocardial infarction. - Radiology Data Radiology results: pending, report reviewed Print Report Referring Physician: KYE AYERS Patient Name: PRIMO DAVIS Date of : 1955 Sex: Female Report Date: 2019-07-25 Report Status: Finalized Findings [facility] [address] [place] [address] Cat Scan Report Signed Patient: PRIMO DAVIS MR#: [id number] 461 : 1955 Acct:[id number] Age/Sex: 63 / F ADM Date: 07/25/19 Loc: ED Attending Dr: Ordering Physician: KYE AYERS MD Date of Service: 07/25/19 Procedure(s): CT thoracic spine wo con Accession Number(s): [id number] cc: KYE AYERS MD . CT thoracic spine without contrast CLINICAL HISTORY: Thoracic back pain FINDINGS: No previous exams available for comparison. There is milder curvature of the thoracic spine, convex toward the right. There is no significant spondylolisthesis. There are multilevel mild degenerative changes involving thoracic spine. However, there is no clear evidence of acute compression fracture. There is no clear CT evidence of significant bony of spinal stenosis involving the thoracic spine. The posterior spondylosis at the visualized C5-6 and C6-7 levels efface the ventral subarachnoid space at. No definitive focal lytic lesions are identified. 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 However, there is more lobulated heterogeneous lesion within the central portion of the lipoma the T5 level measuring 1.9 cm transverse by 2.1 cm AP in greatest dimensions at. The lipoma itself measures approximately 10.5 cm in greatest longitudinal dimension. The central finding is of unclear etiology though a fairly well-circumscribed at. Correlation would be needed regarding trauma in this region and resolving hematoma. All CT scans at this location are performed using the CT dose reduction for ALARA by means of automated exposure control. IMPRESSION: There is mild scoliosis of the thoracic spine with multilevel degenerative changes. However, there is no clear CT evidence of acute compression fracture involving thoracic spine. 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 However, there is a 1.9 x 2.1 cm lobulated lesion within the central portion which is of unclear etiology as detailed above. If clinical questions remain, follow-up nonemergent pre and postcontrast MRI of the thoracic spine may be a considered to further characterize this finding. Signer Name: Kye Carpenter MD Signed: 07/25/2019 4:33 PM Workstation Name: [id number] Transcribed By: MR Dictated By: Kye Crapenter MD Electronically Authenticated By: Kye Carpenter MD Signed Date/Time: 07/25/19 1637 DD/ 1623 Print Report Referring Physician: KYE AYERS Patient Name: PRIMO DAVIS Date of : 1955 Sex: Female Report Date: 2019-07-25 Report Status: Finalized Findings [facility] [address] [place] [address] Cat Scan Report Signed Patient: PRIMO DAVIS MR#: [id number] 461 : 1955 Acct:[id number] Age/Sex: 63 / F ADM Date: 07/25/19 Loc: ED Attending Dr: Ordering Physician: KYE AYERS MD Date of Service: 07/25/19 Procedure(s): CT abdomen pelvis wo con Accession Number(s): [id number] cc: KYE AYERS MD CT ABDOMEN AND PELVIS WITHOUT CONTRAST HISTORY: back pain paralbumbar pain hip pain. COMPARISON: None. TECHNIQUE: CT images of the abdomen and pelvis were obtained without administration of intravenous contrast. All CT scans at this location are performed using CT dose reduction for ALARA by means of automated exposure control. FINDINGS: Lungs/bones: Incompletely visualized 3 mm nodule in the right middle lobe on image #1 of series #4. Lung bases are otherwise clear. There are degenerative changes within the spine and pelvis with erosive appearing changes at the left greater than right SI joints and associated dense subchondral sclerosis again left greater than right. No acute osseous abnormality identified. Mild levoscoliosis centered in the thoracolumbar spine with normal AP alignment. Abdomen/pelvis: The liver, gallbladder, spleen, pancreas, adrenals, and proximal GI tract appear unremarkable. There is minimal nonspecific bilateral perinephric stranding. No hydronephrosis, stone disease, or mass. Urinary bladder and reproductive organs are unremarkable with no pelvic free fluid. No acute colonic abnormality identified in this patient with mild diverticulosis. The appendix and terminal ileum appear normal. The aorta is unremarkable with no significant atherosclerotic disease. IMPRESSION: 1. No acute abnormality identified. 2. Incidental findings as above including a 3 mm right middle lobe pulmonary nodule. Please see below recommendations. INCIDENTAL PULMONARY NODULE RECOMMENDATIONS Solid Nodule size <6 mm -- Single or Multiple - Low Risk Patient: No routine follow-up - High Risk Patient: Optional CT at 12 months Note These recommendations do not apply to lung cancer screening, patients with immunosuppression, or patients with known primary cancer. Note Newly detected indeterminate nodule in persons 35 years of age or older. Persons under the age of 35 should not receive follow-up unless there is a known primary cancer. Low Risk Patient -- minimal or absent history of smoking and of other known risk factors. High Risk Patient -- history of smoking or of other known risk factors. Nodule dimensions are average of long and short axes, rounded to the nearest millimeter. Based on 2017 Fleischner Society Guidelines found in Radiology 2017 284:228-243. [email or web address]/[email or web address] Signer Name: Lincoln Abdi MD Signed: 07/25/2019 4:24 PM Workstation Name: [id number] Transcribed By: JW Dictated By: Lincoln Abdi MD Electronically Authenticated By: Lincoln Abdi MD Signed Date/Time: 07/25/19 1624 Report Referring Physician: KYE AYERS Patient Name: PRIMO DAVIS Date of : 1955 Sex: Female Report Date: 2019-07-25 Report Status: Finalized Findings [facility] [address] [place] [address] Cat Scan Report Signed Patient: PRIMO DAVIS MR#: [id number] 461 : 1955 ct:[id number] Age/Sex: 63 / F ADM Date: 07/25/19 Loc: ED Attending Dr: Ordering Physician: KYE AYERS MD Date of Service: 07/25/19 Procedure(s): CT lumbar spine wo [facility] Accession Number(s): [id number] cc: KYE AYESR MD CT LUMBAR SPINE WITHOUT CONTRAST INDICATION / CLINICAL INFORMATION: back pain, paraspinous pain and hip pain. TECHNIQUE: Axial CT images were obtained through the lumbar spine. Sagittal and coronal reformatted images were produced. All CT scans at this location are performed using CT dose reduction for ALARA by means of automated exposure control. COMPARISON: None available. FINDINGS: ALIGNMENT: Normal alignment is maintained throughout. VERTEBRAE: No indication of fracture or bone destruction. DISC SPACES: Disc height is normally maintained throughout the lumbar region. LEVEL BY LEVEL ANALYSIS: L1-2:No abnormality. L2-3:No abnormality. L3-4: Left worse than right facet arthropathy is noted. Broad-based disc bulge, facet arthritic change and thickening of the ligamentum flavum contribute to mild central canal stenosis at the L3-4 level. Neuroforamina are adequately maintained. L4-5: Right worse than left facet arthropathy. No additional abnormality. L5-S1: No abnormality. SPINAL CANAL: Mild central canal stenosis at L3-4. Central spinal canal appears adequate throughout the remainder of the lumbar region. SACROILIAC JOINTS: Evaluation of the SI joints reveals prominent sclerosis on the iliac side of the left sacroiliac joint. This is associated with extensive, large erosions affecting the articular surface and subchondral bone. Similar findings are seen to a lesser degree on both sides of the right SI joint. Differential diagnosis includes a variety of an inflammatory arthritides including gout and seronegative spondyloarthropathies. SACRUM:Aside from sacroiliac arthritic changes second has an unremarkable appearance. No significant abnormality of the visualized sacrum. PARASPINAL SOFT TISSUES: No significant abnormality. ADDITIONAL FINDINGS: None. IMPRESSION: 1. 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 2. Mild central canal stenosis L3-4 secondary to facet arthropathy, thickening of the ligamentum flavum and mild broad-based disc bulge. Signer Name: Jp Gillespie MD Signed: 07/25/2019 7:26 PM Workstation Name: [id number] Transcribed By: Dictated By: Jp Gillespie MD Electronically Authenticated By: Jp Gillespie MD Signed Date/Time: 07/25/191925 Critical care attestation.: If time is entered above; I have spent that time in minutes in the direct care of this critically ill patient, excluding procedure time. ED Disposition Clinical Impression: Medication refill, Back pain, Debility Disposition: DC-01 TO HOME OR SELFCARE Is pt being admited?: No Does the pt Need Aspirin: No Condition: Stable Additional Instructions: Continue outpatient prescription medications. Recommend follow-up with the primary care doctor to have further refills on controlled substances and s edating medications. Recommend follow-up with the primary care doctor within the next 7-10 days. Patient had incidental findings noted on CT scan, which seemed to be followed up by primary care doctor. Please have primary care doctor contact medical records department to obtain CT scan results. CT scan abdomen and pelvis demonstrate a nonspecific right-sided lung nodule, which should be followed up within the next 6 months to make certain that it is not a cancer, tumor, malignancy. CT scan thoracic spine demonstrated nonspecific soft tissue findings, which should be followed up by either her primary care doctor or neurosurgeon within the next 6 weeks. Return to the emergency room right away with projectile vomiting, change in mental status, confusion, inability to tolerate liquid feeds, new, worsened or different symptoms not present on the initial emergency room evaluation. Prescriptions: amLODIPine 10 mg PO DAILY #30 Divalproex ER [Depakote ER] 500 mg PO BID #60 Folic Acid [Folvite] 1 mg PO QDAY #30 hydroCHLOROthiazide [HCTZ] 25 mg PO QDAY #30 Thiamine [Vitamin B-1] 100 mg PO QDAY #30 Lisinopril [Zestril TAB] 20 mg PO QDAY #30 Referrals: [facility] [Provider Group] - 3-5 Days [facility] [Provider Group] - 3-5 Days CHARLIE SANDHU MD [Staff Physician] - as needed
--- NOTE | 2019-07-25 16:28 | Cat Scan Report ---
CT ABDOMEN AND PELVIS WITHOUT CONTRAST HISTORY: back pain paralbumbar pain hip pain. COMPARISON: None. TECHNIQUE: CT images of the abdomen and pelvis were obtained without administration of intravenous co ntrast. All CT scans at this location are performed using CT dose reduction for ALARA by means of au tomated exposure control. FINDINGS: Lungs/bones: Incompletely visualized 3 mm nodule in the right middle lobe on image #1 of series #4. Lung bases are otherwise clear. There are degenerative changes within the spine and pelvis with erosi ve appearing changes at the left greater than right SI joints and associated dense subchondral sclero sis again left greater than right. No acute osseous abnormality identified. Mild levoscoliosis center ed in the thoracolumbar spine with normal AP alignment. Abdomen/pelvis: The liver, gallbladder, spleen, pancreas, adrenals, and proximal GI tract appear unr emarkable. There is minimal nonspecific bilateral perinephric stranding. No hydronephrosis, stone dis ease, or mass. Urinary bladder and reproductive organs are unremarkable with no pelvic free fluid. No acute colonic abnormality identified in this patient with mild diverticulosis. The appendix and terminal ileum appe ar normal. The aorta is unremarkable with no significant atherosclerotic disease. IMPRESSION: 1. No acute abnormality identified. 2. Incidental findings as above including a 3 mm right middle lobe pulmonary nodule. Please see below recommendations. INCIDENTAL PULMONARY NODULE RECOMMENDATIONS Solid Nodule size <6 mm -- Single or Multiple - Low Risk Patient: No routine follow-up - High Risk Patient: Optional CT at 12 months Note These recommendations do not apply to lung cancer screening, patients with immunosuppression, o r patients with known primary cancer. Note Newly detected indeterminate nodule in persons 35 years of age or older. Persons under the age of 35 should not receive follow-up unless there is a known primary cancer. Low Risk Patient -- minimal or absent history of smoking and of other known risk factors. High Risk Patient -- history of smoking or of other known risk factors. Nodule dimensions are average of long and short axes, rounded to the nearest millimeter. Based on 2017 Fleischner Society Guidelines found in Radiology 2017 284:228-243. [email or web address] 148/[email or web address] Signer Name: Lincoln Abdi MD Signed: 07/25/2019 4:24 PM Workstation Name: [id number]
--- NOTE | 2019-07-25 16:37 | Cat Scan Report ---
. CT thoracic spine without contrast CLINICAL HISTORY: Thoracic back pain FINDINGS: No previous exams available for comparison. There is milder curvature of the thoracic spine , convex toward the right. There is no significant spondylolisthesis. There are multilevel mild degen erative changes involving thoracic spine. However, there is no clear evidence of acute compression fr acture. There is no clear CT evidence of significant bony of spinal stenosis involving the thoracic spine. Th e posterior spondylosis at the visualized C5-6 and C6-7 levels efface the ventral subarachnoid space at. No definitive focal lytic lesions are identified. 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 However, there is more lobulated heterogeneous lesion within the central portion of the lipoma th e T5 level measuring 1.9 cm transverse by 2.1 cm AP in greatest dimensions at. The lipoma itself zunilda ures approximately 10.5 cm in greatest longitudinal dimension. The central finding is of unclear etio logy though a fairly well-circumscribed at. Correlation would be needed regarding trauma in this [place] on and resolving hematoma. All CT scans at this location are performed using the CT dose reduction fo r ALARA by means of automated exposure control. IMPRESSION: There is mild scoliosis of the thoracic spine with multilevel degenerative changes. However, there is no clear CT evidence of acute compression fracture involving thoracic spine. 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 However, there is a 1.9 x 2.1 cm lobulated lesion within the central portion which is of uncle ar etiology as detailed above. If clinical questions remain, follow-up nonemergent pre and postcontra st MRI of the thoracic spine may be a considered to further characterize this finding. Signer Name: Kye Carpenter MD Signed: 07/25/2019 4:33 PM Workstation Name: [id number]
[2019-07-25 16:44] LABS: Hematocrit 28.8 % (30.3-42.9); Hemoglobin 9.5 gm/dl (10.1-14.3); Mean Corpuscular HGB Conc 33 % (30-34); Mean Corpuscular Volume 89 fl (79-97); Platelet Count 484 K/mm3 (140-440); Red Blood Count 3.23 M/mm3 (3.65-5.03); Red Cell Distribution Width 16.3 % (13.2-15.2)
[2019-07-25 16:57] LABS: INR 1.09 (0.87-1.13)
[2019-07-25 17:07] LABS: Alanine Aminotransferase 36 units/L (7-56); Albumin 2.8 g/dL (3.9-5); BUN/Creatinine Ratio 26; Blood Urea Nitrogen 13 mg/dL (7-17); Calcium 10.2 mg/dL (8.4-10.2); Hemolysis Index 0
[2019-07-25] MEDS ORDERED: HYDROXYZINE HCL 100 MG PO PRN (17:55)
[2019-07-25] MEDS ORDERED: diazePAM 5 MG TAB PO PRN (17:55)
[2019-07-25] MEDS ORDERED: amLODIPine 10 MG TAB PO SCH (18:00)
[2019-07-25] MEDS ORDERED: MAGNESIUM OXIDE 400 MG TAB PO STA (18:59)
--- NOTE | 2019-07-25 19:31 | Cat Scan Report ---
CT LUMBAR SPINE WITHOUT CONTRAST INDICATION / CLINICAL INFORMATION: back pain, paraspinous pain and hip pain. TECHNIQUE: Axial CT images were obtained through the lumbar spine. Sagittal and coronal reformatted images were produced. All CT scans at this location are performed using CT dose reduction for ALARA by means of a utomated exposure control. COMPARISON: None available. FINDINGS: ALIGNMENT: Normal alignment is maintained throughout. VERTEBRAE: No indication of fracture or bone destruction. DISC SPACES: Disc height is normally maintained throughout the lumbar region. LEVEL BY LEVEL ANALYSIS: L1-2:No abnormality. L2-3:No abnormality. L3-4: Left worse than right facet arthropathy is noted. Broad-based disc bulge, facet arthritic johnson ge and thickening of the ligamentum flavum contribute to mild central canal stenosis at the L3-4 leve l. Neuroforamina are adequately maintained. L4-5: Right worse than left facet arthropathy. No additional abnormality. L5-S1: No abnormality. SPINAL CANAL: Mild central canal stenosis at L3-4. Central spinal canal appears adequate throughout t he remainder of the lumbar region. SACROILIAC JOINTS: Evaluation of the SI joints reveals prominent sclerosis on the iliac side of the l eft sacroiliac joint. This is associated with extensive, large erosions affecting the articular surfa ce and subchondral bone. Similar findings are seen to a lesser degree on both sides of the right SI j oint. Differential diagnosis includes a variety of an inflammatory arthritides including gout and ser onegative spondyloarthropathies. SACRUM:Aside from sacroiliac arthritic changes second has an unremarkable appearance. No significant abnormality of the visualized sacrum. PARASPINAL SOFT TISSUES: No significant abnormality. ADDITIONAL FINDINGS: None. IMPRESSION: 1. 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 2. Mild central canal stenosis L3-4 secondary to facet arthropathy, thickening of the ligamentum flav um and mild broad-based disc bulge. Signer Name: Jp Gillespie MD Signed: 07/25/2019 7:26 PM Workstation Name: [id number]
[2019-07-25] MEDS ORDERED: IBUPROFEN 400 MG TAB PO ONE ×2 (20:15→20:26)
[2019-07-25 21:34] VITALS: BP 143/77
[2019-07-25] MEDS ORDERED: GABAPENTIN 300 MG CAP PO SCH (22:00)
[2019-07-25] MEDS ORDERED: CITALOPRAM 20 MG TAB PO SCH (22:00)
[2019-07-25] MEDS ORDERED: DIVALPROEX ER 500 MG TAB PO SCH (22:00)
[2019-07-26] MEDS ORDERED: [UNRECOGNIZED DRUG - OTHER] PO SCH (10:00)
[2019-07-26] MEDS ORDERED: LISINOPRIL 20 MG TAB PO SCH (10:00)
[2019-07-26] MEDS ORDERED: FOLIC ACID 1 MG TAB PO SCH (10:00)
[2019-07-26] MEDS ORDERED: hydroCHLOROthiazide 25 MG TAB PO SCH (10:00)
[2019-07-26] MEDS ORDERED: THIAMINE 100 MG TAB PO SCH (10:00)
[2019-07-26] MEDS ORDERED: MULTIVITAMINS,THER W-MINERALS TAB PO SCH (10:00)
== END 2019-07-25 20:30 | disposition home or self-care (01) ==
LOC: ED 13:21
DX: G89.29 Other chronic pain (principal); M54.5 Low back pain; R53.81 Other malaise; M25.559 Pain in unspecified hip; F31.9 Bipolar disorder, unspecified; F25.9 Schizoaffective disorder, unspecified; E11.9 Type 2 diabetes mellitus without complications; I10 Essential (primary) hypertension; Z76.0 Encounter for issue of repeat prescription; Z79.899 Other long term (current) drug therapy
CPT/HCPCS: 36415; 72128; 72131; 74176; 80053; 80164; 82550; 83735; 85027; 85610; 93005; 93010; 96372; 99285; J1170; J3246; 80320; G0480